=== PATIENT | female | born 1965 | race Two or more races ===

== ENCOUNTER 2022-12-22 10:21 | Inpatient (IN) | payer OTHER ==
[~2022-12-22] VITALS: Ht 162.6 cm; Wt 48.1 kg
--- NOTE | 2022-12-22 11:08 | NUR ---
SE REFCIBE PTE ALERTA Y OREINTADA X3 PTE REFIERE TENER [facility] 2 PITTS LA MISMA REFIERE SER PACIENTE DE DIALISIS Y INDICA QUE LLEVA DEE DEE SEMANA SIN TOMARLAS. PTE REFIERE MUDARSE HACE POCO PARA GUAM Y NO TIENE DR[facility] SE ODALIS VITALES Y SE MARTIN EN JASMIN DE ESPERA
[2022-12-22] MEDS ORDERED: CARVEDILOL ER40 MG PO (11:13)
[2022-12-22] MEDS ORDERED: COZAAR50 MG PO (11:13)
== END 2023-01-01 13:42 | disposition home or self-care (01) | DRG 684 ==
LOC: ER 10:21 → MEDI 22:11 → O/R 12-25 16:14 → MEDI 12-25 16:15
PROVIDERS: Emergency Medicine; Internal Medicine; ADMIT Internal Medicine; ATTEND Internal Medicine
PROC: 4A12X4Z Monitoring of Cardiac Electrical Activity, External Approach (ICD-10-PCS; 2022-12-23)
PROC: B24BYZZ Ultrasonography of Heart with Aorta using Other Contrast (ICD-10-PCS; principal; 2022-12-24)
DX: N18.6 End stage renal disease (principal); N17.9 Acute kidney failure, unspecified; I10 Essential (primary) hypertension; E87.70 Fluid overload, unspecified; Z99.2 Dependence on renal dialysis